=== PATIENT | female | born 1980 | race Caucasian/White ===

== ENCOUNTER → 2017-09-12 14:40 | Outpatient (CLI) | payer OTHER, SELFPAY | PROVIDERS: Family Provider Nurse Practitioner Women's Health; PCP Nurse Practitioner Women's Health; Visit Provider Nurse Practitioner Women's Health | DX: N76.0 Acute vaginitis (principal) | CPT/HCPCS: 87070; 87205 ==

== ENCOUNTER → 2017-09-13 15:04 | Outpatient (CLI) | payer OTHER, SELFPAY ==
--- NOTE | 2017-09-13 15:07 | RAD_ITS ---
STUDY: X-RAY - LEFT SHOULDER REASON FOR EXAM: Injury 2 weeks ago. TECHNIQUE: 3 view(s) of the shoulder. COMPARISON: None. FINDINGS: Normal glenohumeral articulation. Normal acromioclavicular joint. Normal acromion. Normal humeral head and visualized proximal humerus. The soft tissue structures are unremarkable. Normal visualized pulmonary apex. RAD/Shoulder min 2 Views IMPRESSION: Normal x-ray examination of the left shoulder. Electronically Signed: Portillo Howard MD at 16:32 EST Tel , Service support ,
== END ==
PROVIDERS: Visit Provider Orthopaedic Surgery
DX: M25.512 Pain in left shoulder (principal)
CPT/HCPCS: 73030

== ENCOUNTER → 2017-10-16 16:31 | Outpatient (CLI) | payer OTHER, SELFPAY ==
--- NOTE | 2017-10-16 16:31 | US_ITS ---
STUDY: ULTRASOUND OF THE FEMALE PELVIS - COMPLETE REASON FOR EXAM: Female, 37 years old. Cyst TECHNIQUE: Transabdominal and endovaginal TECHNICAL QUALITY: Adequate. COMPARISON: None. FINDINGS: The uterus has been surgically removed. The right ovary is visualized. The right ovary measures 3.6 x 2.9 x 2.6 cm. There is a 1.3 cm right ovarian cyst or ovarian mass. There is normal arterial and normal venous vascularity. The left ovary has been surgically removed.. There is no fluid in the cul-de-sac. The pre void volume of the bladder was 158 ml. US/Pelvic (Non ) IMPRESSION: Small right ovarian cyst or dominant follicle. Electronically Signed: Jesus Sandoval DO at 23:53 EDT Tel [phone], Service support ,
== END ==
PROVIDERS: Visit Provider Obstetrics & Gynecology
DX: R10.2 Pelvic and perineal pain (principal); Z87.42 Personal history of other diseases of the female genital tract
CPT/HCPCS: 76856; 93976

== ENCOUNTER → 2017-10-17 16:31 | Outpatient (CLI) | payer OTHER, SELFPAY | PROVIDERS: Visit Provider Nurse Practitioner Women's Health | DX: N76.0 Acute vaginitis (principal) | CPT/HCPCS: 87070; 87205 ==

== ENCOUNTER 2017-11-28 08:19 | Day surgery (SDC) | payer OTHER, SELFPAY ==
[2017-11-28] VITALS (8 sets, daily range): BP systolic 95–106; BP diastolic 53–72; PULSE 70–95; RESP 14–18; TEMP 36.3–36.6; O2SAT 100; BMI 19.5
--- NOTE | 2017-11-28 | EGD_PTH ---
PATIENT: MACI ALDRIDGE LOC: EN U#:[id number] AGE/SX: 37/F ROOM: RE11/28/[address]: Dr. Mark Tomlinson MD : 1980 BED: DIS: 11/28/2017 SPEC #: [id number] RECD: 11/28/17 13:00 STATUS: PEARL BABITA #: [id number] JADA: 11/28/17 00:[address]: Mark Tomlinson DEPT: SURGICAL PATHOLOGY RECD BY: Carmen Ramos ENTERED: 11/28/17 13:15 SP TYPE: EGD BIOPSY KENYA DR: Tammy Caban, ASSOCIATE ENTERTAINMENT EDITOR-C Tissues: A - BOWEL BIOPSY B - Ileum, NOS Procedures: Surgery Specimen Level IV HEADER OPERATION: EGD, colonoscopy PRE-OP DIAGNOSIS: Unexplained weight loss, RLQ abdominal pain, celiac disease, family history of colon cancer TISSUE SUBMITTED: A. Small bowel biopsy, B. Terminal ileum biopsy MICROSCOPIC DIAGNOSIS A. Small bowel, biopsy: Fragments of small intestinal mucosa, no pathologic diagnosis. B. Terminal ileum, biopsy: Fragment of small intestinal mucosa, no pathologic diagnosis. CECILLE:justin 11/29/17 MICROSCOPIC DESCRIPTION Slides are reviewed. GROSS DESCRIPTION A - Received in fixative is one container labeled with the patient's name and designated small bowel biopsy. The specimen consists of multiple irregular fragments of light flores soft tissue that in aggregate measure 0.7 x 0.3 x 0.1 cm. The specimen is totally submitted in one cassette. B - Received in fixative is one container labeled with the patient's name and designated terminal ileum biopsy. The specimen consists of one irregular fragment of light flores soft tissue that measures 0.3 x 0.3 x 0.1 cm. The specimen is totally submitted in one cassette. / CECILLE:justin 11/28/17 TC:4 CPT: 22296 x2
--- NOTE | 2017-11-28 09:47 | PCM.OPRPT ---
Problem List (1) Abnormal weight loss Status: Acute (2) Right lower quadrant pain Status: Acute (3) Celiac disease Status: Acute (4) Family history of colon cancer in father Status: Acute Report of Operation Date of Procedure: 11/28/17 Pre-Operative Diagnosis: r63.4 unexplained weight loss. r10.31 right lower quadrant abdominal pain. k90.0 celiac disease. z80.0 family history of colon cancer in father Post-Operative Diagnosis: Same Surgery/Procedure Performed:: 73792 esophagogastroduodenoscopy with biopsy. 28249 colonoscopy with biopsy Type of Anesthesia:: MAC Anesthesiologist: Ottoniel Martinez Description of Procedure: Patient was brought into the endoscopy suite. Back of her throat was sprayed with Cetacaine spray. Bite-block was placed. She was placed on the left lateral decubitus position. Graded anesthesia was given. The scope was inserted in the back of the oropharynx and directed down through the esophagus into the stomach and into the duodenum without difficulty. Operative findings: 1. Duodenum: Normal appearance no mass lesions biopsy for celiac sprue was obtained. 2. Stomach: Normal appearance no mass lesions small amount of antral gastritis was identified. Biopsy for H. pylori was obtained. 3. Esophagus: Normal appearance no mass lesions normal Z line at 40 cm there is no signs of esophagitis. Colonoscope was inserted into the anus and directed through the rectum, sigmoid colon, descending colon, transverse colon, ascending colon, to the cecum, and into the terminal ileum. Operative findings: 1. Terminal ileum: Normal appearance biopsy for celiac sprue was obtained no signs of mass lesions no signs of ulcerations. 2. Cecum: Normal appearance no mass lesions no ulcerations normal ileocecal valve. 3. Descending colon: Normal appearance no mass lesions 4. Transverse colon: Normal appearance no mass lesions. 5. Descending colon: Normal appearance no mass lesions. 6. Sigmoid colon: Normal appearance no mass lesions. 7. Rectum: Normal appearance no mass lesions. Scope was withdrawn digital rectal exam was performed showing no masses within the anus. Normal sphincter tone. At this point will wait for biopsy results to come back. From the scope there is no obvious explanation for right lower quadrant abdominal pain and abnormal weight loss. - Admit VTE Documentation VTE Present on Admission: No VTE Mechan Device Prophylaxis: None VTE Pharm Prophylaxis ordered?: No Reason prophylaxis not ordered:: Treatment Not Indicated
[2017-11-28] MEDS: Ondansetron 4 MG/2 ML Vial IV (10:03)
== END 2017-11-28 11:00 | disposition home or self-care (01) ==
LOC: EN 08:19 → AC 08:20
PROVIDERS: Family Provider Nurse Practitioner Primary Care; PCP Nurse Practitioner Primary Care; Visit Provider Surgery
PROC: 0DJD8ZZ Inspection of Lower Intestinal Tract, Via Natural or Artificial Opening Endoscopic (ICD-10-PCS; CPT 45378; principal; 2017-11-28 09:25)
DX: R10.31 Right lower quadrant pain (principal); K90.0 Celiac disease; R63.4 Abnormal weight loss; G43.909 Migraine, unspecified, not intractable, without status migrainosus; E28.2 Polycystic ovarian syndrome; Z79.899 Other long term (current) drug therapy; Z87.891 Personal history of nicotine dependence; Z98.51 Tubal ligation status; Z80.0 Family history of malignant neoplasm of digestive organs
CPT/HCPCS: 43239; 45380; 88305; J7120; J2405

== ENCOUNTER → 2018-02-20 07:53 | Outpatient (CLI) | payer OTHER, SELFPAY ==
--- NOTE | 2018-02-20 07:55 | CT_ITS ---
STUDY: CT ABDOMEN AND PELVIS WITH CONTRAST REASON FOR EXAM: Female, 37 years old. Left-sided abdominal pain for one month RADIATION DOSAGE (If Supplied By Facility): CTDIvol = ( 13.53 ) mGy, DLP = ( 358.83 ) mGycm TECHNIQUE: Transaxial images were obtained from the dome of the diaphragm to the symphysis pubis with oral contrast. 100mL ml of Isovue 300 contrast was administered. Sagittal and coronal images were reconstructed. Individualized dose optimization techniques were used for this CT. COMPARISON: None. FINDINGS: The visualized lung bases are unremarkable. The visualized portions of the heart are within normal limits. Normal liver. There are surgical clips in the gallbladder fossa consistent with a prior cholecystectomy. Normal spleen. Normal pancreas. Normal bilateral adrenal glands. Normal right kidney. Normal left kidney. Normal visualized stomach. Normal small intestine. Normal colon. There are surgical clips in the region of the appendix consistent with a prior appendectomy. Normal abdominal aorta. Normal inferior vena cava. Normal retroperitoneum. Normal urinary bladder. There is absence of the uterus consistent with a prior hysterectomy. Normal abdominal wall. Normal osseous structures. CT/Abdomen/Pelvis WITH Contrast IMPRESSION: 1. No inflammatory process or bowel obstruction. 2. Cholecystectomy, appendectomy, hysterectomy. Electronically Signed: Lc Galindo MD at 11:37 EDT , Service support ,
== END ==
PROVIDERS: Family Provider Nurse Practitioner Primary Care; PCP Nurse Practitioner Primary Care; Visit Provider Surgery
DX: R10.12 Left upper quadrant pain (principal)
CPT/HCPCS: 74177; Q9967

== ENCOUNTER → 2018-07-30 18:37 | Outpatient (CLI) | payer OTHER, SELFPAY ==
[2018-07-22 08:48] VITALS: BMI 21.1
--- NOTE | 2018-07-30 18:41 | US_ITS ---
STUDY: ULTRASOUND OF THE FEMALE PELVIS - COMPLETE REASON FOR EXAM: Female, 38 years old. Right lower quadrant pain TECHNIQUE: Transabdominal and Transvaginal TECHNICAL QUALITY: Adequate. COMPARISON: None. FINDINGS: The uterus is surgically absent. The right ovary is visualized. The right ovary measures 3.4 x 3.1 x 2.8 cm. There is a 2.3 cm anechoic lesion associated with the right ovary. There is no visualized right adnexal mass or complex lesion. There is normal arterial and normal venous vascularity. The left ovary is nonvisualized There is no fluid in the cul-de-sac. The pre void volume of the bladder was 444 ml. Polycystic ovary disease: No. US/Pelvic (Non ) IMPRESSION: 2.3 cm simple appearing right ovarian cyst. Electronically Signed: Willie Montgomery MD at 3:29 EST Tel , Service support ,
--- NOTE | 2018-07-30 18:49 | US_ITS ---
STUDY: ULTRASOUND OF THE FEMALE PELVIS - COMPLETE REASON FOR EXAM: Female, 38 years old. Right lower quadrant pain TECHNIQUE: Transabdominal and Transvaginal TECHNICAL QUALITY: Adequate. COMPARISON: None. FINDINGS: The uterus is surgically absent. The right ovary is visualized. The right ovary measures 3.4 x 3.1 x 2.8 cm. There is a 2.3 cm anechoic lesion associated with the right ovary. There is no visualized right adnexal mass or complex lesion. There is normal arterial and normal venous vascularity. The left ovary is nonvisualized There is no fluid in the cul-de-sac. The pre void volume of the bladder was 444 ml. Polycystic ovary disease: No. US/Transvaginal Non- IMPRESSION: 2.3 cm simple appearing right ovarian cyst. Electronically Signed: Willie Montgomery MD at 3:29 EST Tel , Service support ,
== END ==
PROVIDERS: Family Provider Nurse Practitioner Primary Care; PCP Nurse Practitioner Primary Care; Referring Provider Nurse Practitioner Women's Health; Visit Provider Nurse Practitioner Women's Health
DX: R10.2 Pelvic and perineal pain (principal); R10.31 Right lower quadrant pain
CPT/HCPCS: 76830; 76856; 93976

== ENCOUNTER → 2018-08-15 14:39 | Outpatient (CLI) | payer OTHER, SELFPAY ==
[2018-07-22 08:48] VITALS: BMI 21.1
--- NOTE | 2018-08-15 14:54 | RAD_ITS ---
STUDY: X-RAY - RIGHT HIP REASON FOR EXAM: Female, 38 years old. Ongoing hip pain, no injury TECHNIQUE: 2 views of the hip. COMPARISON: CT abdomen pelvis 03/20/2017 FINDINGS: Normal femoral head, neck, intertrochanteric region and visualized proximal femur. Stable small sclerosis in the medial femoral head at the physis. Normal acetabulum. Tiny 3 mm spur along the acetabulum is stable 2017. There is no osseous interposition. Normal hip joint. Normal visualized superior and inferior pubic rami and ischial tuberosities. RAD/HIP, UNI W/ Pelvis 2-3 Views IMPRESSION: Tiny stable spur along the acetabulum . Electronically Signed: Brunilda Edmond MD at 7:08 EST , Service support ,
== END ==
PROVIDERS: Family Provider Nurse Practitioner Primary Care; PCP Nurse Practitioner Primary Care; Referring Provider Physician Assistant; Visit Provider Physician Assistant
DX: M25.551 Pain in right hip (principal)
CPT/HCPCS: 73502

== ENCOUNTER 2018-09-03 06:53 | Outpatient (RCR) | payer OTHER, SELFPAY ==
[2018-07-22 08:48] VITALS: BMI 21.1
[2018-08-29 16:55] VITALS: BMI 21.1
--- NOTE | 2018-09-03 07:44 | HP.PTEVAL_ITS ---
Patient's Visit Information MACI ALDRIDGE is a 38 year old F referred to Physical Therapy by ALESSANDRA Burgess with a diagnosis of Right Hip Pain- Radiculopathy. Date of Evaluation: 09/03/18 Physical Therapist: More Lockwood DPT - Visit Plan Plan: Return to MD for further evaluation and images secondary to saddle parasthesia and good current home exercise program. - Subjective Findings: Patient reports that she has had issues with her right side for about 5-6 months. Insidious onset. The pain comes and goes and is reproducable. She can only reproduce the pain when she stands and performs flexion/ext rotation and then rotates into extn. The pain shoots down to the lateral aspect of her foot. In the past month she has started to get saddle parasthesia in her anterior pelvis region when she sits for longer than a few minutes. When she gets up and moves the pain goes away. Sharp shooting pain goes away quickly once she returns to a resting position but their is an ache that remains. She has no pain in frontal plane movements. She is very active and works out at the gym. Work: [employer]C for an [employer] office. Pt has had a hip x-ray which was unremarkable but no further imaging at this time. Sleep is not disturbed and she sleeps in all positions. PMHx/Meds: see chart. - Objective Posture: FH, RS while in sitting but does correct given verbal cues. Gait: no deviation noted. Observation: right LE is larger than left LE- decreased muscle mass. Palpation: not tender throughout LE. ROM: WFL in all planes. Strength: Left Ankle DF: 5/5, Right Ankle DF: 4/5 Knee: Left flexion: 41,45,41 Right flexion:22,24,27 Left Extn: 50, 54,53 Right Extn: 40,35,41 Hip: IR: left 30,30,33 Right 25,22,22 (Use of hand held dynamometer) Flexion/Extn: Left: 4+/5 Right: 4-/5 Core:fair minus. SLS: 30 sec without LOB. Dural Signs: negative - Rehabilitation Potential Physical Therapy Diagnosis: Patient presents with hypmobility- she has decreased strength and muscular endurance leading to abnormal posture and increased pain with ADL's. Rehabilitation Potential: Fair - Anticipated Interventions Thank you for the opportunity to evaluate your patient. For Medicare and Medicare HMO plans, please review the plan of care and approve it. It will need to be FAXED BACK to us at [phone] for Medicare purposes. For Medicare only, by signing this I certify the plan of care. Please let me know if there are questions or concerns regarding this plan of care. Physician Signature: Date:
--- NOTE | 2018-11-15 08:09 | HP.PT.NRP ---
HP - Discharge Summary (1) - Patient Information MACI ALDRIDGE was seen in my office for initial evaluation on 09/03/18. The following Plan of Care was established for this patient: This patient was last seen in our office . Pertinent comments regarding their Physical therapy will appear below: Patient has not attended physical therapy in over 30 days and is appropriate for discharge. Follow up with MD as appropriate. At this point I will be discontinuing this patient from physical therapy. I would be happy to see this patient again in the future if found appropriate by the physician. Thank you! KIARA ChaconT
== END 2018-09-03 19:00 | disposition home or self-care (01) ==
LOC: PT 06:53
PROVIDERS: Family Provider Nurse Practitioner Primary Care; PCP Nurse Practitioner Primary Care; Referring Provider Physician Assistant; Visit Provider Physician Assistant
DX: M25.551 Pain in right hip (principal); M54.10 Radiculopathy, site unspecified
CPT/HCPCS: 97161

== ENCOUNTER → 2018-09-04 14:02 | Outpatient (CLI) | payer OTHER, SELFPAY ==
[2018-09-03 09:42] VITALS: BMI 21.1
--- NOTE | 2018-09-04 14:04 | RAD_ITS ---
STUDY: X-RAY - LUMBOSACRAL SPINE REASON FOR EXAM: Female, 38 years old. Low back pain TECHNIQUE: Six view(s) of the lumbosacral spine were obtained. COMPARISON: CT abdomen and pelvis dated February 20, 2018 FINDINGS: Normal lumbar lordosis. There is no substantial scoliosis. There is normal alignment of the vertebrae. Normal vertebral bodies and endplates. Moderate disc space narrowing at L5-S1. Normal bilateral sacral ala, sacroiliac joints, and visualized sacrum. Surgical clips in the mid right abdomen. RAD/L/S Spine Comp/w Bending Views IMPRESSION: Moderate degenerative disc changes at L5-S1. Normal alignment in neutral positioning, flexion and extension. Electronically Signed: Nicole Lopez MD at 16:39 EST , Service support ,
== END ==
PROVIDERS: Family Provider Nurse Practitioner Primary Care; PCP Nurse Practitioner Primary Care; Referring Provider Physician Assistant; Visit Provider Physician Assistant
DX: R29.898 Other symptoms and signs involving the musculoskeletal system (principal)
CPT/HCPCS: 72114

== ENCOUNTER → 2018-11-11 16:44 | Outpatient (CLI) | payer OTHER, SELFPAY ==
[2018-09-03 09:42] VITALS: BMI 21.1
[2018-11-11 17:53] LABS: Hematocrit 39.2 % (37-47); Hemoglobin 12.6 g/dl (12.0-15.0); Mean Corp Hgb Conc 32.1 g/gl (32-36); Mean Corpuscular Hgb 29.2 pg (27.0-32.0); Mean Corpuscular Volume 90.7 fL (81-99); Mean Platelet Vol. 10.4 fl (6.2-12.0); Platelet Count 204 K/mm3 (150-450); RBC Distribution Width CV 14.1 % (11.6-14.6); RBC Distribution Width SD 46.7 fl (35.1-43.9); Red Blood Count 4.32 M/mm3 (4.2-5.4); White Blood Count 4.3 K/mm3 (4.4-11.0)
[2018-11-11 17:56] LABS: Scan Indicated on CBC? Y/N NO
[2018-11-11 18:25] LABS: ALB/GLOB Ratio 1.2 RATIO (0.9-2.4); AST(SGOT) 17 U/L (15-37); Alanine Aminotransfer ALT/SGPT 26 U/L (13-56); Albumin, Serum 3.8 g/dL (3.2-5.0); Alkaline Phosphatase 72 U/L (45-117); Anion Gap 6 (5-15); BUN 13 mg/dL (7-18); Calcium,Total 9.2 mg/dL (8.5-10.1); Chloride 108 mmol/L (98-107); Creatinine, Serum 0.81 mg/dL (0.55-1.02); EST Glomerular Filtration Rate 83 mL/min (>60); Est Glom Filt Rate - Afr Amer 100 mL/min (>60); Globulin 3.2 g/dL (2.2-4.2); Glucose 82 mg/dL (74-106); Potassium 3.8 mmol/L (3.5-5.1); Sodium Level 143 mmol/L (136-145); T4 Free Direct 0.97 ng/dL (0.76-1.46); T4 Total, Thyroxin 8.5 ug/dL (4.8-13.9); Thyroid Stim Hormone (TSH) 1.32 uIU/mL (0.358-3.74)
== END ==
PROVIDERS: Family Provider Nurse Practitioner Primary Care; PCP Nurse Practitioner Primary Care; Referring Provider Nurse Practitioner Primary Care; Visit Provider Nurse Practitioner Primary Care
DX: R55 Syncope and collapse (principal)
CPT/HCPCS: 36415; 80053; 84436; 84439; 84443; 85027

== ENCOUNTER → 2018-11-13 14:55 | Outpatient (CLI) | payer OTHER, SELFPAY ==
[2018-09-03 09:42] VITALS: BMI 21.1
--- NOTE | 2018-11-13 14:56 | ECHOD_ITS ---
Reason For Study: Syncope Procedure This was a 2D Doppler, Color Flow transthoracic echocardiogram. Exam performed in department. Left Ventricle Normal size and thickness. The estimated ejection fraction is 65 %. Normal diastology for age. No regional wall motion abnormalities noted. Right Ventricle Normal size and thickness. Normal systolic function. Atria Normal left atrium. Normal right atrium. Normal atrial septum. Mitral Valve The mitral valve is structurally normal. No prolapse or stenosis seen. Tricuspid Valve Normal tricuspid valve. Trivial tricuspid valve insufficiency. Right ventricular systolic pressure estimated to be 23 mmHg. Aortic Valve Normal aortic valve. Trisinus/trileaflet aortic valve. Pulmonic Valve Normal pulmonic valve. Great Vessels Normal aortic root. Normal arch. Normal inferior vena cava. Inferior vena cava collapse with sniff. Pericardium/Pleural No pericardial effusion. MMode/2D Measurements & Calculations LVIDd: 4.3 cm IVSd: 0.76 cm LA dimension: 3.2 cm LVIDs: 2.6 cm LVPWd: 0.88 cm RVDd: 3.6 cm FS: 39.5 % LAV(MOD-bp): 28.1 ml LA A4 area: 10.2 cm2 RA A4 area: 9.7 cm2 LAV(MOD-bp) Indexed: 16.6 ml/m2 LAV(MOD-sp2): 33.7 ml LAV(MOD-sp4): 21.3 ml Time Measurements MV dec time: 0.20 sec Doppler Measurements & Calculations MV E max roverto: 86.4 cm/sec Lat Peak E' Roverto: 17.6 cm/sec Med Peak E' Roverto: 15.7 cm/sec MV A max roverto: 49.5 cm/sec E/E' lat: 4.9 E/E' med: 5.5 MV E/A: 1.7 MV V2 max: 100.2 cm/sec MV P1/2t max roverto: 100.2 cm/sec Ao V2 max: 113.9 cm/sec MV max P.0 mmHg MV P1/2t: 91.4 msec Ao max P.2 mmHg MV V2 mean: 54.1 cm/sec MV dec slope: 321.0 cm/sec2 Ao V2 mean: 77.2 cm/sec MV mean P.4 mmHg MVA(P1/2t): 2.4 cm2 Ao mean P.7 mmHg MV V2 VTI: 22.5 cm Ao V2 VTI: 22.5 cm LV V1 max: 97.4 cm/sec PA V2 max: 75.1 cm/sec TR max roverto: 212.6 cm/sec LV V1 max P.8 mmHg TR max P.1 mmHg LV V1 mean P.7 mmHg LV V1 mean: 58.2 cm/sec LV V1 VTI: 20.4 cm Interpretation Summary The estimated ejection fraction is 65 %. Normal diastology for age. Trivial tricuspid valve insufficiency. Right ventricular systolic pressure estimated to be 23 mmHg. There is no comparison study available. Ordering Physician: Tammy Elder Referring Physician: Tammy Elder Performed By: James Zeng RCS
== END ==
PROVIDERS: Family Provider Nurse Practitioner Primary Care; PCP Nurse Practitioner Primary Care; Referring Provider Nurse Practitioner Primary Care; Visit Provider Nurse Practitioner Primary Care
DX: R55 Syncope and collapse (principal)
CPT/HCPCS: 93306

== ENCOUNTER → 2019-03-13 15:29 | Outpatient (CLI) | payer OTHER, SELFPAY ==
[2019-03-13 15:21] VITALS: BMI 21.1
--- NOTE | 2019-03-13 15:31 | RAD_ITS ---
STUDY: X-RAY - LEFT KNEE REASON FOR EXAM: Twisting injury. TECHNIQUE: 4 view(s) of the knee. COMPARISON: None. FINDINGS: Normal visualized distal femur. There is a fibroxanthoma in the medial aspect of the proximal tibial diametaphysis. Normal proximal tibiofibular articulation. Normal medial femorotibial compartment. Normal lateral femorotibial compartment. Normal patellofemoral articulation. The soft tissue structures are unremarkable. 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 Otherwise, unremarkable x-ray examination of the left knee. Electronically Signed: Portillo Howard MD at 15:54 EDT Tel , Service support ,
== END ==
PROVIDERS: Family Provider Nurse Practitioner Primary Care; PCP Nurse Practitioner Primary Care; Referring Provider Orthopaedic Surgery; Visit Provider Orthopaedic Surgery
DX: M25.562 Pain in left knee (principal)
CPT/HCPCS: 73564

== ENCOUNTER → 2019-03-29 07:11 | Outpatient (CLI) | payer OTHER, SELFPAY ==
[2019-03-13 15:21] VITALS: BMI 21.1
--- NOTE | 2019-03-29 07:13 | MRI_ITS ---
STUDY: MRI LEFT KNEE REASON FOR EXAM: Female, 38 years old. Pain. Twisting injury. TECHNIQUE: Standardized fat and water weighted pulse sequences were obtained in all 3 orthogonal planes. COMPARISON: X-ray March 13, 2019. FINDINGS: Normal medial meniscus. Normal hyaline cartilage of the medial femorotibial compartment. Normal medial femoral condyle and tibial plateau. Normal medial collateral ligamentous complex (MCL). Normal distal semimembranosus, gracilis and semitendinosus tendons. Normal lateral meniscus. Normal hyaline cartilage of the lateral femorotibial compartment. Normal lateral femoral condyle and tibial plateau. Normal proximal tibiofibular articulation. Normal lateral collateral (fibular) ligament. Normal popliteus tendon. Normal biceps femoris tendon. Normal anterior cruciate ligament (ACL). Normal posterior cruciate ligament (PCL). Normal congruent patellofemoral articulation. Normal hyaline cartilage of the patellofemoral compartment. Normal medial and lateral patellar retinaculum. Normal quadriceps tendon. Normal patellar tendon. Normal Hoffa's fat pad. There is a small volume joint effusion. The soft tissues are unremarkable. The otherwise visualized osseous structures are unremarkable. MRI/Lower Ext Joint Only (Routine) IMPRESSION: No ligamentous or meniscal tear. Small joint effusion. Electronically Signed: Fox Dee MD at 8:07 EDT , Service support ,
== END ==
PROVIDERS: Family Provider Nurse Practitioner Primary Care; PCP Nurse Practitioner Primary Care; Referring Provider Orthopaedic Surgery; Visit Provider Orthopaedic Surgery
DX: S86.912A Strain of unspecified muscle(s) and tendon(s) at lower leg level, left leg, initial encounter (principal)
CPT/HCPCS: 73721

== ENCOUNTER 2019-05-06 08:00 | Day surgery (SDC) | payer OTHER, SELFPAY ==
[2019-01-31 17:02] VITALS: BMI 21.1
[2019-04-21 16:21] VITALS: BMI 21.1
--- NOTE | 2019-04-25 02:39 | HP.PCM_ITS ---
- Problem List (1) Endometriosis Status: Acute Comment: s/p 2 years depot lupron with resolution of symptoms- recommend permanent solution of oophorectomy. (2) Right lower quadrant pain Status: Acute (3) Chronic pelvic pain in female Status: Chronic Comment: recommend oophorectomy, plan LUQ port for entry History and Physical Date of Admission: 05/06/19 Intake Vital Signs 04/21/19 Body Mass Index (BMI) 21.1 04/21/19 Height 5 ft 6 in 04/21/19 Weight: 138 lb 04/21/19 Body Mass Index (BMI) 22.2 04/21/19 Blood Pressure 122/64 H Intake Visit Reasons: preop Chief Complaint: pre op lap oophrectomy [employer] Required: No Is patient in pain?: No Allergies oxycodone Adverse Reaction (Verified 04/21/19 16:21) Itching tramadol Adverse Reaction (Verified 04/21/19 16:21) Itching pain meds Allergy (Mild, Uncoded 04/21/19 16:21) nausea/vomiting Medications Escitalopram Oxalate [Lexapro] 10 mg PO DAILY 04/10/19 [History Confirmed 04/21/19] Is last menstrual period known: No Post menopausal: No Patient : No : No PFSH Medical History Abdominal pain (Acute) History of migraine headaches (Acute) Hx of syncope (Acute) PCOS (polycystic ovarian syndrome) (Acute) hx of d&c (Acute) Surgical History History of LAVH (Acute) History of cholecystectomy (Acute) History of tonsillectomy (Acute) Hx of appendectomy (Acute) S/P removal of left ovary (Acute) bilateral knee scope (Acute) right shoulder scope (Acute) Family History Father Colon cancer Mother Thyroid disorder Sister Thyroid disorder Social History (Updated 04/21/19 @ 16:44 by Nadine Choudhury MD) Smoking Status: Former smoker alcohol intake: current details: social substance use type: does not use caffeine: Yes seatbelt use: always HPI preop: Details: MACI ALDRIDGE is a 38 year old who presents for Female Reproductive History Menopausal Symptoms: No night sweats Pregancy History 3 Elective abortions Hx Para 2 Spontaneous abortions Hx # Term Pregnancies Ectopic pregnancies Hx # Pregnancies Multiple births # of living children 2 Past Pregnancies Del. Date Name GA/Weeks Outcome Route Bth Weight [facility] 2005 [place] Unknown 2007 [place] ROS Const Constitutional: Denies fatigue, night sweats, weight gain or weight loss ENT ENT: Reports system reviewed and no additional complaints, except as docu Cardio Card: Denies chest pain Resp Resp: Denies cough or dyspnea : Denies nipple discharge, urinary frequency, urinary incontinence, urinary hesitancy, urinary urgency, vaginal discharge, vaginal dryness, vaginal odor or vaginal itching Musc Musc: Denies joint pain, back pain or muscle weakness Skin Skin/Breast: Denies hair loss, change in hair, dry skin, breast lump, breast pain, breast skin changes or nipple discharge Neuro Neuro: Reports system reviewed and no additional complaints, except as docu Psych Psych: Reports system reviewed and no additional complaints, except as docu Endo Endo: Denies cold intolerance, excessive sweating, heat intolerance or increased thirst Jagdish/Lymph Hematologic/Lymphatic: Denies easy bleeding, Denies easy bruising, Denies enlarged lymph nodes Exam Const General: cooperative, healthy appearing, comfortable, no acute distress, well developed Orientation: alert [facility] Head: normal to inspection, normocephalic Ears: hearing grossly normal bilaterally, external ears normal Nose: external nose normal, nares normal Face and sinus: normal facial exam Neck Neck: normal visual inspection, no lymphadenopathy Thyroid: thyroid normal Chest Chest palpation & inspection: normal inspection of the chest Resp Effort & Inspection: normal respiratory effort Auscultation: clear to auscultation bilaterally Cardio Rate: regular rate Rhythm: regular rhythm Heart Sounds: S1 normal, S2 normal GI Inspection: normal to inspection, non-distended Palpation: soft, no hepatosplenomegaly Musc Other: gross motor intact no deficits, full bilateral strength Skin General: no rashes or lesions noted Neuro General: alert, awake, moves all extremities, no focal motor deficits Motor: muscle tone normal throughout Extrem General: normal to inspection, no pedal edema Psych Appearance: grossly normal Mental Status: mental status grossly normal Affect: normal affect Speech and Movement: speech and movement normal Assessment & Plan Problems 1. Chronic pelvic pain in female R10.2; G89.29 recommend oophorectomy, plan LUQ port for entry 2. Endometriosis N80.9 s/p 2 years depot lupron with resolution of symptoms- recommend permanent solution of oophorectomy. Plan After discussing the patient's diagnosis and treatment plan options, patient wishes to proceed with surgical management. I have discussed with the patient the risks, benefits, and alternatives of the procedure which include but are not limited to risks of anesthesia, bleeding, infection, possible damage to bowel, bladder, or surrounding vasculature which could lead to additional surgery to evaluate any complications. Patient agrees to procedure and wishes to proceed. ACOG/uptodate references given for additional information regarding procedure. Coding Level of Care Code No Charge Diagnoses Chronic pelvic pain in female R10.2; G89.29 Endometriosis N80.9
[2019-04-28 13:54] LABS: Hematocrit 41.1 % (37-47); Hemoglobin 13.4 g/dL (12.0-15.0); Mean Corp Hgb Conc 32.6 g/dL (32-36); Mean Corpuscular Hgb 29.8 pg (27.0-32.0); Mean Corpuscular Volume 91.5 fL (81-99); Mean Platelet Vol. 10.9 fl (6.2-12.0); Platelet Count 239 K/mm3 (150-450); RBC Distribution Width SD 43.8 fl (35.1-43.9); Red Blood Count 4.49 M/mm3 (4.2-5.4); White Blood Count 6.7 K/mm3 (4.4-11.0)
[2019-04-28 14:08] LABS: Anion Gap 6 (5-15); BUN 14 mg/dL (7-18); BUN/Creat Ratio 16.1 RATIO (10-20); Calcium,Total 9.3 mg/dL (8.5-10.1); Chloride 109 mmol/L (98-107); Creatinine, Serum 0.87 mg/dL (0.55-1.02); EST Glomerular Filtration Rate 77 mL/min (>60); Est Glom Filt Rate - Afr Amer 93 mL/min (>60); Glucose 96 mg/dL (74-106); Sodium Level 143 mmol/L (136-145)
--- NOTE | 2019-04-30 14:51 | EKG12_ITS ---
Test Reason : PREOP Blood Pressure : / mmHG Vent. Rate : 066 BPM Atrial Rate : 066 BPM P-R Int : 124 ms QRS Dur : 072 ms QT Int : 374 ms P-R-T Axes : 019 070 077 degrees QTc Int : 392 ms Normal sinus rhythm with sinus arrhythmia Normal ECG Confirmed by SIXTO VALVERDE, REBECCA ([id number]), associate entertainment editor LEONEL NUGENT ([id number]) on 05/07/2019 11:10:26 AM Referred By: Nadine Choudhury Confirmed By:CARLI HENSON MD
[2019-05-06] VITALS (9 sets, daily range): BP systolic 81–109; BP diastolic 46–64; PULSE 60–83; RESP 16; TEMP 36.1–36.6; O2SAT 96–98; BMI 22.0
[2019-05-06] MEDS: Lactated Ringers 1,000 ML 100 ML IV (08:39)
--- NOTE | 2019-05-06 09:30 | OV_PTH ---
PATIENT: MACI ALDRIDGE LOC: [facility] – [place] U#:[id number] AGE/SX: 38/F ROOM: RE05/06/[address]: Dr. Nadine Choudhury MD : [id number] BED: DIS: 05/06/2019 SPEC #: [id number] RECD: 05/06/19 14:27 STATUS: PEARL BABITA #: [id number] JADA: 05/06/19 09:[address]: Nadine Choudhury DEPT: SURGICAL PATHOLOGY RECD BY: Carmen Ramos ENTERED: 05/06/19 14:40 SP TYPE: OVARY OTHR DR: MD Tammy Mane, MILK AND CREAM GRADER-C Tissues: Right ovary Procedures: Surgery Specimen Level IV HEADER OPERATION: Laparoscopic oophorectomy PRE-OP DIAGNOSIS: Endometriosis; right lower quadrant pain; chronic pelvic pain TISSUE SUBMITTED: Right ovary MICROSCOPIC DIAGNOSIS Right ovary, oophorectomy: Ovary - physiologic follicular cysts. - Focal endometriosis. Fallopian tube - no pathologic diagnosis. CECILLE:justin 05/07/19 MICROSCOPIC DESCRIPTION Slides are reviewed. GROSS DESCRIPTION Received in fixative is one container labeled with the patient's name and designated right ovary. The specimen consists of a fallopian tube and ovary. The fallopian tube measures 2.5 cm in length and 0.5 cm in diameter. The fimbrial end is identified. Sections do not reveal any mass lesion. No tubo-ovarian adhesions are identified. The ovary measures 3.5 x 3 x 2 cm and weighs 9.5 gm. The outer surface is smooth without any papillation and inked black. Sections reveal multiple cysts filled with clear fluid. The largest cyst measures 1 cm in greatest dimension. Assistant Engineer sections are submitted in four cassettes as follows: 1 - fallopian tube, almost 90% of the fallopian tube is submitted, 2-4 - ovary. / CECILLE:justin 05/06/19 TC:5 CPT: 67071
--- NOTE | 2019-05-06 09:52 | OP.PCM_ITS ---
Problem List (1) Endometriosis Status: Acute Comment: s/p 2 years depot lupron with resolution of symptoms- recommend permanent solution of oophorectomy. (2) Right lower quadrant pain Status: Acute (3) Chronic pelvic pain in female Status: Chronic Comment: recommend oophorectomy, plan LUQ port for entry Report of Operation Date of Procedure: 05/06/19 Pre-Operative Diagnosis: endometriosis pelvic pain Post-Operative Diagnosis: same plus left sided adhesions Surgery/Procedure Performed:: laparoscopic RSO Description of Surgical Findings:: left rectosigmoid adhesions right cystic ovary with pelvic adhesions printed circuit photographer: Shalonda Sims Type of Anesthesia:: General Special Medications: yane Specimen's removed: right ovary Drains: none Estimated Blood Loss (mL): minimal Fluids Replaced: crystalloid Description of Procedure: Patient was taken in the operating room and was placed under general anesthesia was prepped and draped in normal sterile fashion in the dorsal lithotomy position. Bladder was drained of clear urine and SCDs were on preoperatively. Attention was then paid to the abdominal portion of the procedure and the left upper quadrant was elevated with towel clamps and injected with Marcaine and after a 5 mm incision was made and the Veress needle was entered into the abdomen confirmed to be intra-abdominal with a low opening pressure of less than 5 mmHg. Abdomen was insufflated with CO2 gas and a 5 mm optical trocar was placed under direct visualization. A left 5 mm and 12 mm right lower quadrant ports were placed under direct visualization. Significant rectosigmoid adhesions were noted on the left pelvic sidewall extending down to the top of the vaginal cuff and the right ovary. These adhesions were taken down sharply and bluntly with the LigaSure device and ovarian fossa adhesions were taken down. Yane was applied over the area due to her the raw appearance but excellent hemostasis was noted after this. Right fallopian tube and right ovary were identified and the infundibulopelvic ligament was transected across using the LigaSure device followed by transecting across the mesosalpinx to the attachment to the uterine corpus bilaterally the tubes and ovaries were removed without complication. Excellent hemostasis was noted. Ovary and tube were removed through the right lower quadrant port site without complication. Liver and upper abdomen were visualized notably within normal limits and no other gross abnormalities were seen in the abdomen. All instruments removed from the abdomen after gas was desufflated. Port sites were closed with 3-0 Monocryl Steri's and op sites were applied. All instruments removed from the vagina and patient was awoken and taken recovery in stable condition. Grafts/Implants Used: none - Complications none - Admit VTE Documentation VTE Present on Admission: No VTE Mechan Device Prophylaxis: SCD's VTE Pharm Prophylaxis ordered?: No Multi Select Codes - Urinary/Genital Urinary/Genital CPT Codes: 99406 Laproscopic BS/O
[2019-05-06] MEDS: Bupivacaine 0.25% 30 ML Vial (11:04)
--- NOTE | 2019-05-06 11:52 | PCM.DC.TUB ---
Discharge Diet: No Restrictions - Increase fluid intake for the next 48 hours. Discharge Activity: Return to Normal Activity, May Drive - when you are no longer taking narcotic pain medications., May Shower, May Take a Tub Bath - in 7 days Additional Activity Instructions:: Ambulate often the next week after surgery. Nothing in the vagina for 5 days. Call your doctor if your incision/area has: Continuous Slow Oozing, Sudden Increased Bleeding, Increased Pain/ Swelling, Increased Redness, Foul Smelling Discharge Call your doctor if you observe: Fever of 101 or Higher Allergies/Adverse Reactions: Allergies oxycodone Allergy (Verified 05/06/19 08:30) Itching tramadol Allergy (Verified 05/06/19 08:30) Itching pain meds Adverse Reaction (Mild, Uncoded 05/06/19 08:30) nausea/vomiting Takes with a benadryl or antiemetic Medications to take at Discharge Escitalopram Oxalate [Lexapro] 10 mg PO DAILY 04/10/19 Naproxen [Naprosyn] 250 - 500 mg PO Q8H PRN PRN #30 tab 05/06/19 The following prescriptions were given: Naproxen [Naprosyn] 250 - 500 mg PO Q8H PRN PRN #30 tab PRN Reason: MILD PAIN Prescription Printed Orders to be completed after discharge: Type & Screen Time Frame: 04/10/19, Facility: [facility], Location: Laboratory 12 Lead EKG [CVS] Time Frame: 04/10/19, Facility: [facility], Location: Cardiovascular Services Basic Metabolic Profile (BMP) Time Frame: 04/10/19, Facility: [facility], Location: Laboratory CBC-Complete Blood Cnt No Diff Time Frame: 04/10/19, Facility: [facility], Location: Laboratory Primary Care Physician: Tammy Caban NP-C [Primary Care Provider] - Test Results: Test results from this visit will be discussed in further detail at your follow-up appointment, if applicable. Please Follow Up With: Nadine Choudhury MD - [phone]
== END 2019-05-06 15:02 | disposition home or self-care (01) ==
LOC: SDC 08:01 → AC 08:18
PROVIDERS: Family Provider Nurse Practitioner Primary Care; PCP Nurse Practitioner Primary Care; Referring Provider Obstetrics & Gynecology; Visit Provider Obstetrics & Gynecology
PROC: (CPT 58720; principal; 2019-05-06 09:15)
DX: N80.9 Endometriosis, unspecified (principal); R10.2 Pelvic and perineal pain; G89.29 Other chronic pain; F41.9 Anxiety disorder, unspecified; Z79.899 Other long term (current) drug therapy; Z87.891 Personal history of nicotine dependence; Z86.2 Personal history of diseases of the blood and blood-forming organs and certain disorders involving the immune mechanism
CPT/HCPCS: 58661; 36415; 80048; 85027; 86850; 86900; 86901; 88305; 93005; J7120; J2405

== ENCOUNTER 2019-05-08 10:21 | Emergency (ER) | payer OTHER, SELFPAY ==
[2019-05-06 08:31] VITALS: BMI 22.0
[2019-05-08 10:22] VITALS: BP 101/67; PULSE 58; RESP 18; TEMP 36.6; O2SAT 100; BMI 22.4
[2019-05-08 11:47] LABS: Absolute Lymphocyte Count 2.35 X10^3/uL (0.83-4.51); Absolute Neutrophil Count 2.5 X10^3/uL (2.0-7.7); Basophil# 0.02 X10^3/uL; Basophil% 0.4 % (0-1); Eosinophil# 0.07 X10^3/uL; Eosinophils% 1.3 % (0-5); Hematocrit 36.2 % (37-47); Hemoglobin 11.8 g/dL (12.0-15.0); Lymphocyte # 2.35 X10^3/ul (4.0); Lymphocyte % 44.1 % (19-41); Mean Corp Hgb Conc 32.6 g/dL (32-36); Mean Corpuscular Volume 92.1 fL (81-99); Mean Platelet Vol. 10.8 fl (6.2-12.0); Monocyte# 0.39 X10^3/uL; Monocyte% 7.3 % (0-10); NRBC Flagged by Analyzer 0 % (0-5); Neutrophil # 2.49 X10^3/uL (2.7-7.7); Neutrophil % 46.7 % (47-70); Platelet Count 193 K/mm3 (150-450); RBC Distribution Width CV 13.1 % (11.6-14.6); RBC Distribution Width SD 43.9 fl (35.1-43.9); Red Blood Count 3.93 M/mm3 (4.2-5.4); White Blood Count 5.3 K/mm3 (4.4-11.0)
[2019-05-08 12:07] LABS: ALB/GLOB Ratio 1.3 RATIO (0.9-2.4); AST(SGOT) 15 U/L (15-37); Alanine Aminotransfer ALT/SGPT 24 U/L (13-56); Albumin, Serum 3.5 g/dL (3.2-5.0); Alkaline Phosphatase 50 U/L (45-117); Anion Gap 5 (5-15); BUN 8 mg/dL (7-18); BUN/Creat Ratio 9.2 RATIO (10-20); Calcium,Total 9.3 mg/dL (8.5-10.1); Chloride 108 mmol/L (98-107); Creatinine, Serum 0.87 mg/dL (0.55-1.02); EST Glomerular Filtration Rate 76 mL/min (>60); Est Glom Filt Rate - Afr Amer 92 mL/min (>60); Estimated Creatinine Clearance 80.47 ml/min; Globulin 2.7 g/dL (2.2-4.2); Glucose 76 mg/dL (74-106); Lipase 98 U/L (73-393); Potassium 3.6 mmol/L (3.5-5.1); Protein, Total 6.2 g/dL (6.4-8.2); Sodium Level 144 mmol/L (136-145)
[2019-05-08] MEDS: Morphine 4 MG/ML Syringe IV (12:10)
[2019-05-08] MEDS: Ondansetron 4 MG/2 ML Vial IV (12:10)
[2019-05-08] MEDS: 0.9% Normal Saline 1,000 ML 1000 ML IV (12:10)
--- NOTE | 2019-05-08 12:12 | ED.VIS.GEN ---
History of Present Illness Chief Complaint: Chest Pain Informant: Patient Onset: Yesterday Context: Gradual Onset Timing: Continuous Narrative: Patient is a 38-year-old female presenting with chest pain. Patient states it started last night and is in her right lower anterior chest. It is constant and worse when she takes a deep breath. The pain does not radiate. She describes it as sharp. Is better when she lays back and worse when she sits up straight. Is not affected by leaning forward. She denies any associated shortness of breath. Patient did have her right ovary removed laparoscopically [address] Hairsh Garber. She states she is only having normal postoperative abdominal pain. She denies any nausea, vomiting or change in bowel habits. She denies any fever or chills. She denies any swelling of her legs, history of DVT or PE. She denies any other complaints at this time. She called her BIOINFORMATICS RESEARCH TECHNICIAN who instructed her to come to the emergency room to be evaluated further for her symptoms. Past Medical History - Allergies and Home Meds Allergies/Adverse Reactions: Allergies oxycodone Allergy (Verified 05/06/19 08:30) Itching tramadol Allergy (Verified 05/06/19 08:30) Itching pain meds Adverse Reaction (Mild, Uncoded 05/06/19 08:30) nausea/vomiting Takes with a benadryl or antiemetic Primary Care Physician: Tammy Caban NP-C [Primary Care Provider] - Surgical History: appendectomy, cholecystectomy, hysterectomy - for endometriosis...also had 1 ovary removed., - - laparoscopy, meninisectomy in both knees Smoking Status: Former smoker - Family History Maternal Family History: Family History (Last Reviewed 04/21/19 @ 16:21 by Charity Martino) Father Colon cancer Mother Thyroid disorder Sister Thyroid disorder Family History: Reports: - - thyroid disease Paternal Family History: Family History (Last Reviewed 04/21/19 @ 16:21 by Charity Martino) Father Colon cancer Mother Thyroid disorder Sister Thyroid disorder Family History: Reports: Cancer - father with colon cancer Sibling Family History: Family History (Last Reviewed 04/21/19 @ 16:21 by Charity Martino) Father Colon cancer Mother Thyroid disorder Sister Thyroid disorder Family History: Reports: - - sister with thyroid disease Review of Systems All systems negative except as indicated Cardiovascular: Reports: Chest pain Gastrointestinal: Reports: Abdominal pain - Diffuse, postoperative Physical Exam Vital Signs/Narrative: Vital Signs Temp Pulse Resp BP Pulse Ox 05/08/19 10:22 97.8 F 58 L 18 101/67 100 Inital Vital Signs reviewed: Yes General: Well nourished, Well developed, No Acute Distress Head: Normocephalic, Atraumatic Eyes: Perrl, EOMI ENT: Moist mucous membranes, No rhinorrhea Neck: Supple, Nontender Cardiovascular: Regular rate, Regular rhythm, No murmurs Respiratory: No distress, CTA bilaterally, Chest nontender Abdomen: Soft, Nondistended, Normal bowel sounds, Tender - Diffuse, most pronounced in the suprapubic and right lower quadrant. Negative for: Guarding, Rebound tenderness Back: Nontender, Normal Inspection Extremities: Nontender, No edema Skin: Normal color, No rash Neurological: Alert, Oriented x3, Cranial nerves II-XII grossly intact, Normal Strength, Normal Sensation Psychological: Normal affect, Normal Mood Diagnostic/Tx/Re-eval Chest X-Ray - ED: 2 View, Read by ED Physician, Read by Radiologist, No Acute Disease Laboratory Results - last 24 hr 05/08/19 05/08/19 05/08/19 12:15 Unknown Unknown WBC 5.3 RBC 3.93 L Hgb 11.8 L Hct 36.2 L MCV 92.1 MCH 30.0 MCHC 32.6 RDW Std Deviation 43.9 RDW Coeff of Hollie 13.1 Plt Count 193 MPV 10.8 Immature Gran % (Auto) 0.200 Neut % (Auto) 46.7 L Lymph % (Auto) 44.1 H [place] % (Auto) 7.3 Eos % (Auto) 1.3 Baso % (Auto) 0.4 Absolute Neuts (auto) 2.5 Absolute Lymphs (auto) 2.35 Nucleated RBC % 0 D-Dimer Quant (PE/DVT) 0.58 H* Sodium Potassium Chloride Carbon Dioxide Anion Gap BUN Creatinine Estim Creat Clear Calc Est GFR (MDRD) Af Amer Est GFR (MDRD) Non-Af BUN/Creatinine Ratio Glucose Calcium Total Bilirubin AST ALT Alkaline Phosphatase Troponin I Total Protein Albumin Globulin Albumin/Globulin Ratio Lipase Urine Color Yellow Urine Clarity Sl. Cloudy Urine pH 7.0 Ur Specific [place] 1.005 Urine Protein Negative Urine Glucose (UA) Normal Urine Ketones Negative Urine Occult Blood Negative Urine Nitrite Negative Urine Bilirubin Negative Urine Urobilinogen Normal Ur Leukocyte Esterase Negative Urine RBC 0 SEEN Urine WBC 0 SEEN Ur Squamous Epith Cells 0-5 SEEN Urine Bacteria 0 SEEN Urine Mucus 0 SEEN 05/08/19 Unknown WBC RBC Hgb Hct MCV MCH MCHC RDW Std Deviation RDW Coeff of Hollie Plt Count MPV Immature Gran % (Auto) Neut % (Auto) Lymph % (Auto) [place] % (Auto) Eos % (Auto) Baso % (Auto) Absolute Neuts (auto) Absolute Lymphs (auto) Nucleated RBC % D-Dimer Quant (PE/DVT) Sodium 144 Potassium 3.6 Chloride 108 H Carbon Dioxide 31.0 Anion Gap 5 BUN 8 Creatinine 0.87 Estim Creat Clear Calc 80.47 Est GFR (MDRD) Af Amer 92 Est GFR (MDRD) Non-Af 76 BUN/Creatinine Ratio 9.2 L Glucose 76 Calcium 9.3 Total Bilirubin 0.50 AST 15 ALT 24 Alkaline Phosphatase 50 Troponin I < 0.015 Total Protein 6.2 L Albumin 3.5 Globulin 2.7 Albumin/Globulin Ratio 1.3 Lipase 98 Urine Color Urine Clarity Urine pH Ur Specific [place] Urine Protein Urine Glucose (UA) Urine Ketones Urine Occult Blood Urine Nitrite Urine Bilirubin Urine Urobilinogen Ur Leukocyte Esterase Urine RBC Urine WBC Ur Squamous Epith Cells Urine Bacteria Urine Mucus - Rhythm Strip Rhythm Strip: Sinus Rhythm Rate: 59 Ectopy: None - EKG Initial EKG Interpretation: Sinus Bradycardia, - - Sinus bradycardia rate of 59 Normal intervals Normal axis Normal ST segments - Medical Decision Making Patient is evaluated for chest pain. She had a laparoscopic lysis of adhesions as well as right oophorectomy yesterday. She appears nontoxic and in no acute distress. She has normal vital signs. Patient does have significant pain and is given IV morphine as well as Zofran. CBC and CMP are unremarkable. Urinalysis does not show signs of infection. D-dimer is mildly elevated so CTA is obtained to rule out PE. This also was negative. I suspect her chest pain is more pleuritic/muscle skeletal but I do not suspect pericarditis, endocarditis or other more serious cardiopulmonary process. Patient be discharged home. Patient's case is discussed with her surgeon, Dr. Harish Garber. She recommends better pain control for the patient if the patient is agreeable. I did write out a prescription for [place] for the patient. Patient is counseled on signs and symptoms requiring return to the emergency room. Patient verbalizes agreement and understand this plan. Patient discharged home in stable and improved condition. ED Disposition - Plan for ED Patient: Disposition: Home or Assisted Living Diagnosis: Chest wall pain following surgery Instructions: CHEST PAIN, Noncardiac (Child) Prescriptions: Hydrocodone/Acetaminophen [D[place] 5-325 Tablet] 1 ea PO Q6H PRN PRN #12 tab PRN Reason: Pain Score 6-10/10 Prescription Printed Referrals: Tammy Caban, CONSTRUCTION REPRESENTATIVE-C [Primary Care Provider] - Additional Instructions: Please follow-up with Dr. Harish Garber as scheduled. Return to emergency room if you develop worsening shortness of breath, chest pain or difficulty breathing. You may take Benadryl with the [place] as needed to help with the itching. Be careful as this might make you very sleepy.
[2019-05-08 12:17] LABS: D-Dimer Quantitative (DVT/PE) 0.58 FEU/ug/m (0.27-0.49)
--- NOTE | 2019-05-08 12:21 | RAD_ITS ---
STUDY: X-RAY CHEST REASON FOR EXAM: Female, 38 years old. Chest pain. Dizziness and cough. Recent ovarian resection. TECHNIQUE: PA and lateral views of the chest. COMPARISON: Comparison is made with prior chest radiograph dated January 09, 2017. FINDINGS: Hyperinflation. Scattered calcified granulomas. No focal infiltrate is seen. Stable focal tenting of the left hemidiaphragm. Normal size heart. Normal mediastinum and gracia. Normal visualized pulmonary arteries. Normal visualized aortic arch and descending thoracic aorta. Normal visualized thoracic spine. Normal visualized ribs, clavicles, and shoulders. Small amount of free intraperitoneal air is seen beneath the right hemidiaphragm in keeping with the patient's recent laparoscopic procedure. RAD/Chest PA and Lateral IMPRESSION: Hyperinflation. Small amount of free air beneath the right hemidiaphragm in keeping with the patient's history of recent funduscopic procedure. Electronically Signed: Hair Rose, at 12:53 EDT , Service support ,
[2019-05-08 12:23] LABS: Bacteria 0 SEEN /hpf (None Seen); Mucous, Urine 0 SEEN /hpf (<or=2+); Red Blood Cells-Urine 0 SEEN /hpf (0-5); White Blood Cells 0 SEEN /hpf (0-5)
[2019-05-08 12:31] LABS: Color, Urine Yellow (Yellow); Glucose, Dipstick Normal (Normal); Ketone-Dipstick Negative (Negative); Leukocyte Esterase-Dipstick Negative /ul (Negative); Nitrite-Dipstick Negative (Negative); Occult Blood-Urine Negative /ul (Negative); Protein-Dipstick Negative (Negative); Specific Gravity, Urine 1.005 (1.002-1.030); Urine Bilirubin Dipstick Negative (Negative); Urine Clarity Sl. Cloudy (Clear); Urine Urobilinogen Normal (Normal)
--- NOTE | 2019-05-08 12:33 | EKG12_ITS ---
Test Reason : CP Blood Pressure : / mmHG Vent. Rate : 059 BPM Atrial Rate : 059 BPM P-R Int : 124 ms QRS Dur : 072 ms QT Int : 386 ms P-R-T Axes : 060 044 072 degrees QTc Int : 382 ms Sinus bradycardia Otherwise normal ECG Confirmed by FRANCOIS VALVERDE, HERNANDEZ ([id number]), make up editor LEONEL NUGENT ([id number]) on 05/12/2019 10:48:53 AM Referred By: Nadine Choudhury Confirmed By:HERNANDEZ PARRISH MD
[2019-05-08 12:41] LABS: Squamous Epithelial Cells - UA 0-5 SEEN /hpf (5-10)
--- NOTE | 2019-05-08 12:58 | CT_ITS ---
STUDY: CTA CHEST REASON FOR EXAM: Female, 38 years old. Chest pain and dizziness. Elevated d-dimer. Recent right oophorectomy. RADIATION DOSAGE (If Supplied By Facility): CTDIvol = ( 9.55 ) mGy, DLP = ( 257.75 ) mGycm TECHNIQUE: The examination was performed with the intravenous administration of IV 75mL Isovue-370 75. Post-processing of the angiographic images was performed, with multiplanar reformation and 3D reconstruction. Individualized dose optimization techniques were used for this CT. COMPARISON: Comparison made with prior chest radiograph done earlier today. FINDINGS: Normal enhancement of the main pulmonary artery and right and left pulmonary arteries. Normal enhancement of the bilateral peripheral pulmonary arteries. There is no demonstrated pulmonary embolism. Normal thoracic aorta and visualized great vessels. There is no demonstrated aortic dissection. Normal heart and pericardium. Normal mediastinum. Normal hilar regions. Normal visualized trachea and bronchi. The lungs are well expanded. Mild degree of increased bibasilar markings increased with bibasilar atelectasis. Normal pleura. Normal chest wall structures. Normal osseous structures. Small amount of free intraperitoneal air in keeping with recent laparoscopic surgery. CT/CTA Chest W/WO Contrast IMPRESSION: Bibasilar atelectasis. Small amount of free intraperitoneal air from recent laparoscopic abdominal surgery. Electronically Signed: Hair Rose, at 14:16 EDT , Service support ,
== END 2019-05-08 14:41 | disposition home or self-care (01) ==
PROVIDERS: Emergency Provider Emergency Medicine; Family Provider Nurse Practitioner Primary Care; PCP Nurse Practitioner Primary Care
DX: R07.89 Other chest pain (principal); R10.9 Unspecified abdominal pain; G89.18 Other acute postprocedural pain; R74.8 Abnormal levels of other serum enzymes; Z79.899 Other long term (current) drug therapy; Z87.891 Personal history of nicotine dependence; Z90.721 Acquired absence of ovaries, unilateral
CPT/HCPCS: 71046; 71275; 80053; 81001; 83690; 84484; 85025; 85379; 93005; 96361; 96374; 96375; 99283; Q9967; J2405

== ENCOUNTER → 2019-05-21 06:40 | Outpatient (CLI) | payer OTHER, SELFPAY ==
[2019-05-16 22:05] VITALS: BMI 22.4
--- NOTE | 2019-05-21 06:43 | CT_ITS ---
STUDY: CT ABDOMEN AND PELVIS WITH CONTRAST REASON FOR EXAM: Female, 38 years old. Right-sided abdominal pain. Recent right oophorectomy. RADIATION DOSAGE (If Supplied By Facility): CTDIvol = ( 8.59 ) mGy, DLP = ( 347.17 ) mGycm TECHNIQUE: Transaxial images were obtained from the dome of the diaphragm to the symphysis pubis without oral contrast. IV Isovue 300 100 was administered. Sagittal and coronal images were reconstructed. Individualized dose optimization techniques were used for this CT. COMPARISON: Comparison is made with prior examination dated February 20, 2018. FINDINGS: The visualized lung bases are unremarkable. The visualized portions of the heart are within normal limits. Normal liver. There are surgical clips in the gallbladder fossa consistent with a prior cholecystectomy. Normal spleen. Normal pancreas. Normal bilateral adrenal glands. Normal right kidney. Normal left kidney. Normal visualized stomach. Normal small intestine. Normal colon. There are surgical clips in the region of the appendix consistent with a prior appendectomy. Normal abdominal aorta. Normal inferior vena cava. Normal retroperitoneum. Normal urinary bladder. There is absence of the uterus consistent with a prior hysterectomy. Normal abdominal wall. Normal osseous structures. CT/Abdomen/Pelvis WITH Contrast IMPRESSION: The patient is status post cholecystectomy, appendectomy and hysterectomy. No acute abnormality is seen. Electronically Signed: Hair Rose, at 9:07 EST , Service support ,
== END ==
PROVIDERS: Family Provider Nurse Practitioner Primary Care; PCP Nurse Practitioner Primary Care; Referring Provider Obstetrics & Gynecology; Visit Provider Obstetrics & Gynecology
DX: G89.18 Other acute postprocedural pain (principal)
CPT/HCPCS: 74177; Q9967

== ENCOUNTER → 2019-08-19 16:39 | Outpatient (CLI) | payer OTHER, SELFPAY ==
[2019-05-22 16:31] VITALS: BMI 22.4
[2019-08-11 08:04] VITALS: BMI 22.4
--- NOTE | 2019-08-19 16:42 | BI_ITS ---
MAMMOGRAPHY - BILATERAL SCREENING REASON FOR EXAM: Female, 39 years old. Routine annual screening examination. PERTINENT HISTORY: Non-contributory. TECHNIQUE: Digital bilateral breast flaco (3D mammographic acquisition) in the CC and MLO projections. 2-D mediolateral oblique (MLO) and craniocaudad (CC) views of both breasts were obtained. CAD: Full Field Digital Mammography with Computer Added Detection was performed. COMPARISON: Comparison is made with prior examination dated July 05, 2015. FINDINGS: Breast Composition: The breasts are heterogeneously dense, which may obscure small masses. There are no dominant masses or suspicious calcifications. No other significant abnormalities are identified. There has been no significant change since the prior study. BI/SCREEN MAMM (CAD) W/FLACO BILAT IMPRESSION: Stable bilateral screening mammogram. Yearly follow-up mammogram recommended. (A) ASSESSMENT CATEGORY: BIRADS Category 1: Negative. A letter regarding these results will be sent to the patient by the facility within 30 days. Approximately 10% of breast cancers are not detected by mammography. A normal mammogram should not delay biopsy of a clinically suspicious abnormality. [id number] Electronically Signed: Hair Rose, at 12:55 EST , Service support ,
== END ==
PROVIDERS: Family Provider Nurse Practitioner Primary Care; PCP Nurse Practitioner Primary Care; Referring Provider Obstetrics & Gynecology; Visit Provider Obstetrics & Gynecology
DX: Z12.31 Encounter for screening mammogram for malignant neoplasm of breast (principal)
CPT/HCPCS: 77063; 77067

== ENCOUNTER → 2019-08-20 13:53 | Outpatient (CLI) | payer OTHER, SELFPAY ==
[2019-08-11 08:04] VITALS: BMI 22.4
[2019-08-20 16:04] LABS: Free T3 2.6 pg/mL (2.18-3.98); T4 Free Direct 1.04 ng/dL (0.76-1.46); Thyroid Stim Hormone (TSH) 0.35 uIU/mL (0.358-3.74)
[2019-08-22 14:08] LABS: Thyroid Peroxidase AB 19 IU/mL (0-34)
[2019-08-22 15:00] LABS: Thyroglobulin Antibody < 1.0 IU/mL (0.0-0.9)
== END ==
PROVIDERS: PCP Nurse Practitioner Primary Care; Referring Provider Obstetrics & Gynecology; Visit Provider Obstetrics & Gynecology
DX: L65.9 Nonscarring hair loss, unspecified (principal); G47.00 Insomnia, unspecified
CPT/HCPCS: 36415; 84439; 84443; 84481; 86376; 86800